=== PATIENT | female | born 1970 ===

== ENCOUNTER → 2018-09-28 20:50 | Outpatient (REF) | payer OTHER, SELFPAY ==
[2018-09-30 15:03] LABS: Progesterone < 0.5 ng/mL
[2018-09-30 18:24] LABS: Sex Hormone Binding Globulin 12 nmol/L (17-124)
[2018-10-02 08:17] LABS: Estrogen 463.8 pg/mL
[2018-10-02 15:22] LABS: Testosterone Free 3.1 pg/mL (0.1-6.4); Testosterone Total 17 ng/dL (2-45)
== END ==
LOC: LAB 20:50
PROVIDERS: Visit Provider Naturopath
DX: R63.5 Abnormal weight gain (principal)
CPT/HCPCS: 82672; 84144; 84270; 84402; 84403

== ENCOUNTER → 2019-02-16 23:16 | Outpatient (REF) | payer OTHER, SELFPAY ==
[2019-02-22 09:17] LABS: Estrogen 212.9 pg/mL
[2019-02-22 10:19] LABS: Progesterone 8.2 ng/mL
== END ==
LOC: LAB 23:16
PROVIDERS: Visit Provider Naturopath
DX: R68.82 Decreased libido (principal); G47.00 Insomnia, unspecified; R63.5 Abnormal weight gain
CPT/HCPCS: 36415; 82672; 84144; 84402; 84403